=== PATIENT | male | born 1970 | race Caucasian/White ===

== ENCOUNTER 2017-08-26 20:30 | Outpatient (CLI) | payer BC | END 2017-08-26 20:31 | disposition home or self-care (01) | LOC: SLEEPLAB 20:30 | PROVIDERS: ATTEND Family Medicine | DX: F51.9 Sleep disorder not due to a substance or known physiological condition, unspecified (principal); G47.33 Obstructive sleep apnea (adult) (pediatric); E11.9 Type 2 diabetes mellitus without complications; I10 Essential (primary) hypertension; E66.9 Obesity, unspecified | CPT/HCPCS: 95811 ==

== ENCOUNTER 2018-04-14 09:24 | Outpatient (CLI) | payer BC ==
[2018-04-14 10:44] LABS: Hemoglobin 14.2 g/dL (14.0-18.0); Mean Corpuscular HGB CONC 33.5 g/dL (32.0-36.0); Mean Corpuscular Hemoglobin 30.7 pg (27.0-31.0); Mean Corpuscular Volume 91.7 fl (80.0-94.0); Mean Platelet Volume 8.8 fL (7.4-10.4); Platelet Count 209 thou/uL (130-400); RBC Distribution Width 12.5 % (11.5-14.5); Red Blood Cell (RBC) Count 4.64 mill/uL (4.70-6.10); White Blood Cell (WBC) Count 7.5 thou/uL (4.8-10.8)
[2018-04-14 10:53] LABS: INR-International Normal Ratio 1.5; PTT 36.5 SEC (22.9-36.1); Prothrombin Time 18.5 SEC (12.0-14.7)
[2018-04-14 11:10] LABS: ALT (SGPT) 40 U/L (8-55); AST (SGOT) 38 U/L (5-34); Alkaline Phosphatase 56 U/L (40-150); Anion Gap 11 mmol/L (10-20); BUN (Urea Nitrogen) 14 mg/dL (8.9-20.6); Bilirubin, Total 0.5 mg/dL (0.2-1.2); Calc. Creatinine Clearance 0 mL/min (70-130); Calcium 9.1 mg/dL (7.8-10.44); Carbon Dioxide 22 mmol/L (22-29); Chloride 106 mmol/L (98-107); Cholesterol 101 mg/dl (< 200 Desired); Estimated GFR-MDRD 70; Globulin 3.8 g/dL (2.4-3.5); Glucose 203 mg/dL (70-105); HDL Cholesterol 25 mg/dL (>60 Neg Risk); LDL Cholesterol, Calculated 53 mg/dL; Potassium 4.4 mmol/L (3.5-5.1); Protein, Total 7.8 g/dL (6.0-8.3); Sodium 135 mmol/L (136-145); Triglycerides 116 mg/dL (Less than 150)
--- NOTE | 2018-04-14 14:27 | EKG ---
Test Reason : Blood Pressure : / mmHG Vent. Rate : 079 BPM Atrial Rate : 072 BPM P-R Int : 000 ms QRS Dur : 100 ms QT Int : 372 ms P-R-T Axes : 000 092 108 degrees QTc Int : 426 ms Atrial fibrillation with premature ventricular or aberrantly conducted complexes Rightward axis Incomplete right bundle branch block T wave abnormality, consider lateral ischemia or digitalis effect Abnormal ECG No previous ECGs available Confirmed by INDIRA DRAKE ([id number]) on 04/14/2018 2:26:35 PM Referred By: ALCIDES Confirmed By:INDIRA DRAKE
== END 2018-04-14 09:25 | disposition home or self-care (01) ==
LOC: LABBT 09:24
PROVIDERS: ATTEND Internal Medicine Cardiovascular Disease
DX: Z01.818 Encounter for other preprocedural examination (principal); R94.39 Abnormal result of other cardiovascular function study; I48.91 Unspecified atrial fibrillation; I45.10 Unspecified right bundle-branch block; R94.31 Abnormal electrocardiogram [ECG] [EKG]
CPT/HCPCS: 80053; 80061; 85027; 85610; 85730; 93005; 93010

== ENCOUNTER 2018-04-19 06:01 | Day surgery (SDC) | payer BC ==
[2018-04-14 10:12] VITALS: BMI 51.4
[2018-04-19] MEDS ORDERED: Diazepam 5 MG TAB ONE (06:22)
[2018-04-19] MEDS ORDERED: Lidocaine 1% (PF) 30 ML VIAL ONE (06:32)
[2018-04-19] MEDS ORDERED: Midazolam HCl 2 mg/2 ml Vial ONE (06:55)
[2018-04-19] MEDS ORDERED: Fentanyl 100 MCG/2 ML VIAL ONE (06:55)
[2018-04-19 06:58] LABS: Prothrombin Time 13.5 SEC (12.0-14.7)
[2018-04-19] MEDS ORDERED: Nitroglycerin 100MG/250ML BOT 250 ML ONE (07:06)
[2018-04-19] MEDS ORDERED: Verapamil 5 MG/2 ML VIAL ONE (07:06)
[2018-04-19] MEDS ORDERED: Heparin 10,000 UNITS/1 ML VIAL ONE (07:06)
== END 2018-04-19 10:20 | disposition home or self-care (01) ==
LOC: CCL 06:01
PROVIDERS: ATTEND Internal Medicine Cardiovascular Disease
DX: I25.10 Atherosclerotic heart disease of native coronary artery without angina pectoris (principal); I48.0 Paroxysmal atrial fibrillation; I49.3 Ventricular premature depolarization; I12.9 Hypertensive chronic kidney disease with stage 1 through stage 4 chronic kidney disease, or unspecified chronic kidney disease; E11.22 Type 2 diabetes mellitus with diabetic chronic kidney disease; N18.3 Chronic kidney disease, stage 3 (moderate); E78.5 Hyperlipidemia, unspecified; Z79.01 Long term (current) use of anticoagulants; Z79.84 Long term (current) use of oral hypoglycemic drugs; Z79.899 Other long term (current) drug therapy; Z82.49 Family history of ischemic heart disease and other diseases of the circulatory system
CPT/HCPCS: 36415; 85610; 85730; 93458; 99152; C1769; J1644; J2001; J2250; J3010